=== PATIENT | male | born 1970 | race American Indian/Alaskan Native ===

== ENCOUNTER 2019-11-18 08:22 | Emergency (ER) | payer SELFPAY ==
[~2019-11-18] VITALS: Ht 172.7 cm; Wt 72.6 kg
[2019-11-18 08:32] VITALS: BP 143/85
[2019-11-18] MEDS ORDERED: KETOROLAC TROMETH 60MG/2ML VIAL IM ONE (10:00)
== END 2019-11-18 10:47 | disposition home or self-care (01) ==
LOC: ER 08:22
DX: S16.1XXA Strain of muscle, fascia and tendon at neck level, initial encounter (principal); S00.03XA Contusion of scalp, initial encounter; W01.0XXA Fall on same level from slipping, tripping and stumbling without subsequent striking against object, initial encounter; Y93.89 Activity, other specified; Y99.8 Other external cause status; Y92.89 Other specified places as the place of occurrence of the external cause
CPT/HCPCS: 70450; 72040; 96372; 99284; J1885